=== PATIENT | female | born 1985 | race African-American/Black ===

== ENCOUNTER 2019-05-15 12:09 | Emergency (ER) | payer MEDICAID ==
[~2019-05-15] VITALS: Ht 167.6 cm; Wt 65.0 kg
[2019-05-15 12:24] VITALS: BP 124/86
== END 2019-05-15 20:20 | disposition left against medical advice (07) ==
LOC: ER 12:09
DX: R10.9 Unspecified abdominal pain (principal); Z53.21 Procedure and treatment not carried out due to patient leaving prior to being seen by health care provider